=== PATIENT | male | born 1980 | race Two or more races ===

== ENCOUNTER → 2025-03-31 | Day surgery (SDC) | payer OTHER ==
[2025-03-30 10:13] LABS: Urine Protein, UAD Negative (Negative)
[2025-03-30 10:14] LABS: Hematocrit 46.3 % (36.0-46.0); Hemoglobin 16.1 g/dL (12.2-16.2); Mean Corpuscular Hemoglobin 30.7 pg (28.0-32.0); Mean Corpuscular Volume 88.3 fL (80.0-100.0); Nucleated Red Blood Cells % 0.0 %
[2025-03-30 11:05] LABS: Alanine Aminotransferase 31 U/L (7-40); Albumin 4.3 g/dL (3.2-4.8); Anion Gap 10 (5-15); BUN/Creatinine Ratio 13.1 (10.0-20.0); Blood Urea Nitrogen 13 mg/dL (9-23); Calcium 8.8 mg/dL (8.7-10.4); Carbon Dioxide 24 mmol/L (20-31); Chloride 106 mmol/L (98-107); Glucose 102 mg/dL (74-106); Potassium 4.1 mmol/L (3.5-5.1); Sodium 140 mmol/L (136-145); Total Protein 7.3 g/dL (5.7-8.2)
[2025-03-30 11:06] LABS: Bilirubin, Total 0.4 mg/dL (0.2-1.0)
[2025-03-30 11:10] LABS: Alkaline Phosphatase 64 U/L (46-116)
[2025-03-30 11:57] LABS: INR 1.06 (0.9-1.15); Partial Thromboplastin Time 28.0 SEC (24.5-34.5); Prothrombin Time 11.2 sec (9.3-11.8)
[~2025-03-31] VITALS: Ht 175.3 cm; Wt 136.1 kg
[~2025-03-31] MED LIST: ACE3T PO; GLYCOPYRROLATE 0.2 MG/ML 1ML VIAL ONE; HYDROmorphone HCL 2 MG/ML VL/or syr IV PRN; HYDROmorphone HCL 2 MG/ML VL/or syr ONE; KETAMINE 50mg/ML 1ml syringe ONE; KETOROLAC TROMETH 30 MG/ML 1ML VIAL ONE; LIDOCAINE 2% (LOCAL ANESTH.) PF 5ml SDV ONE; MIDAZOLAM HCL 2MG/2ML 2ml VIAL (1mg/ml) ONE; ONDANSETRON HCL 4 MG/2 ML VIAL IV PRN; ONDANSETRON HCL 4 MG/2 ML VIAL ONE; PROPOFOL 10 MG/ML 20 ML IV ONE; ROCURONIUM 10MG/ML 10ML VIAL IV ONE; SUGAMMADEX 200mg/2ml Vial (100MG/ML) IV ONE; fentaNYL CITRATE 100 MCG/2 ML VL ONE
[2025-03-31] MEDS: ceFAZolin 2 GM/D5W50ml 50 ML IV ONE (09:13)
[2025-03-31] MEDS: BUPIVACAINE 0.5% P/F INJ 10 ML VIAL ONE (09:38)
[2025-03-31] MEDS: LIDOCAINE W/ EPINEPHRINE 1% 20ML VIAL ONE (09:38)
--- NOTE | 2025-03-31 10:10 | DVHOP ---
DATE OF SURGERY: 03/31/2025 PREOPERATIVE DIAGNOSIS: Umbilical hernia. POSTOPERATIVE DIAGNOSIS: Umbilical hernia. SURGEON: Carlos Deleon MD PBX TEACHER: Oli Ibarra NP ANESTHESIA: General endotracheal. ANESTHESIOLOGIST: Dr. Jacobo PROCEDURE: Repair of umbilical hernia. DESCRIPTION OF PROCEDURE: Under general anesthesia, the patient's skin was prepped and draped and infiltrated with 0.25% Marcaine and 0.5% Xylocaine with epinephrine. An incision was made in the periumbilical skin in a semicircular fashion. The adipose tissue was divided with electrocautery down on to the fibers of the rectus muscle. There was a defect approximately 2 cm in diameter through which omental fat was protruding. The omentum was reduced into the peritoneal cavity. The undersurface of the rectus muscle was underswept with a dissecting finger so as to assure non-injury to any underlying viscera and the defect was then closed using nonabsorbable sutures. Following closure of the fascial defect, the subcutaneous tissues and skin were approximated using Monocryl sutures, Dermabond, glue, and Steri-Strips. He remained stable throughout the procedure and left the operating room following an accurate needle and sponge count. His mother, Luna Schwartz, was thoroughly informed in the waiting area. Carlos Deleon MD PF/ALEA TID: [id number] RECEIPT: [id number]
[2025-03-31 10:19] VITALS: PULSE 104; RESP 15; TEMP 98.1; O2SAT 97
[2025-03-31 11:20] VITALS: BP 122/63; PULSE 91; RESP 16; O2SAT 96
== END | disposition home or self-care (01) ==
LOC: SUR 07:08 → EDSEX 07:08
PROVIDERS: ATTEND Surgery
DX: K42.9 Umbilical hernia without obstruction or gangrene (principal); I10 Essential (primary) hypertension; Z79.899 Other long term (current) drug therapy; Z98.890 Other specified postprocedural states
CPT/HCPCS: 36415; 49591; 80053; 81001; 85025; 85610; 85730; 86850; 86900; 86901; J0690; J1100; J1171; J1885; J2003; J2250; J2405; J2704; J3010; J3490